=== PATIENT | male | born 1970 | race Caucasian/White ===

== ENCOUNTER 2023-08-02 06:26 | Day surgery (SDC) | payer OTHER ==
[2023-07-31 10:41] LABS: Absolute Lymphocytes (CBC) 1.7 K/uL (0.7-4.9); Hematocrit 40.2 % (39.6-49.0); Lymphocytes % 28.6 % (15.3-44.8); MCV 100.6 fL (80-100); MPV 6.2 fL (7.6-11.3); Platelets 371 thou/uL (152-406)
[2023-07-31 10:53] LABS: BUN Blood Urea Nitrogen 13 mg/dL (7-18); Bicarbonate 25 mEq/L (21-32); Glomerular Filtration Rate 101 ml/min (=/>90); Glucose Level 93 mg/dL (74-106); Potassium 4.4 mEq/L (3.5-5.1); Sodium Level 134 mEq/L (136-145); Valproic Acid (Depakene) Level < 3.0 mcg/mL (50.0-100.0)
--- NOTE | 2023-07-31 11:25 | RAD REPORT ---
EXAM DESCRIPTION: RAD - Chest Pa And Lat (2 Views) - 07/31/2023 11:08 am CLINICAL HISTORY: PREPROCEDURE SCREENING. Hypertension COMPARISON: Chest Single View dated 09/22/2017; CHEST SINGLE VIEW dated 02/26/2015; CHEST SINGLE VIEW d ated 11/08/2013; CHEST SINGLE VIEW dated 10/29/2013 TECHNIQUE: PA and lateral views of the chest were obtained. FINDINGS: The lungs are clear. Mild hyperinflation. Mild left basilar atelectasis. Heart size is nor mal and central vasculature is within normal limits. No pleural effusion or pneumothorax seen. No acu te bony finding noted. IMPRESSION: No acute cardiopulmonary process.
[2023-08-02] MEDS: CEFAZOLIN SODIUM 1 GM/VIAL ONE ×2 (07:23→07:41)
[2023-08-02] MEDS ORDERED: propofoL 200 MG/20 ML VIAL IV ONE (07:27)
[2023-08-02] MEDS ORDERED: FENTANYL CITR 100 MCG/2 ML ONE (07:28)
[2023-08-02] MEDS ORDERED: MIDAZOLAM HCL 2 MG/2 ML INJ ONE ×2 (07:30→07:57)
[2023-08-02] MEDS ORDERED: LIDOCAINE 2% MPF 5 ML VIAL ONE (07:30)
[2023-08-02] MEDS ORDERED: dexAMETHasone 10 MG/ML VIAL ONE (08:15)
--- NOTE | 2023-08-02 08:46 | P.BOP ---
Preoperative diagnosis: Left inguinal hernia Postoperative diagnosis: same Primary procedure: Laparoscopic repair of Left inguinal hernia with mesh Estimated blood loss: <10cc Specimen: none Findings: as above Anesthesia: General Complications: None Implants: 3D mesh Transferred to: Recovery Room Condition: Good
[2023-08-02] MEDS: HYDROMORPHONE HCL 1 MG/ML INJ ONE ×2 (09:04→09:14)
[2023-08-02] MEDS ORDERED: CODEINE 30MG/APAP 300MG TAB ONE (10:41)
[2023-08-02 10:54] VITALS: BP 126/84; TEMP 97.6; O2SAT 100
--- NOTE | 2023-08-02 17:29 | EKG ---
Test Date: 2023-07-31 Test Time: 11:44:44 [employer] Operator: GARO MEASUREMENT RESULTS: Intervals: Rate: 61 NM: 148 QRSD: 88 QT: 372 QTc: 374 [place]: P: 35 NM: 148 QRS: 78 T: 61 INTERPRETIVE STATEMENTS: Normal sinus rhythm Normal ECG Compared to ECG 09/22/2017 14:37:09 No significant changes Electronically Signed On 08-02-23 17:23:24 CORPORATE DEVELOPMENT INTERN by Eduardo Cordero
== END 2023-08-02 10:45 | disposition home or self-care (01) ==
LOC: OR 06:26
PROVIDERS: ATTEND Surgery
PROC: 0YU64JZ Supplement Left Inguinal Region with Synthetic Substitute, Percutaneous Endoscopic Approach (ICD-10-PCS; principal; 2023-08-02 07:30)
DX: K40.90 Unilateral inguinal hernia, without obstruction or gangrene, not specified as recurrent (principal)
CPT/HCPCS: 93005; 85025; 80048; 36415; 80164; 71046; 49650; J2704; J2001; J2250 ×2; J3010; J1100; J1170; J0690